=== PATIENT | female | born 1975 | race African-American/Black ===

== ENCOUNTER 2016-10-30 06:04 | Inpatient (IN) | payer OTHER ==
--- NOTE | 2016-10-29 09:45 | HP ---
Satellite PMH - Chief Complaint Chief Complaint: left hip pain Satellite Physical Exam - Physical Examination General Appearance: Well Nourished, Well Developed, Alert & Oriented x3 ENT: Clear Lung: Normal air movement Heart: Regular rate & rhythm Extremities: Other (left hip- + ttp, decr rom, nvi xrays show severe left hip djd) Neurological: Intact, Alert, Oriented Satellite Impression/Plan - Impression/Plan Impression: left hip djd Operative Procedure: left amy thr Date to be Performed: 10/30/16
[2016-10-30] MEDS ORDERED: CEFAZOLIN 1 GM/D5W 50 ML IVPB ONE (06:13)
[2016-10-30] MEDS ORDERED: TRANEXAMIC ACID 1000 MG/10 ML VIAL IVPUSH ONE (06:13)
[2016-10-30] MEDS: GABAPENTIN 300 MG CAPSULE (FP) PO ONE ×2 (06:30→19:26)
[2016-10-30] MEDS: oxyCODONE HCL 10 MG SUSTAINED ACTING TABLET PO ONE ×2 (06:30→19:26)
[2016-10-30] MEDS: CELECOXIB 200 MG CAPSULE PO ONE ×2 (06:30→19:26)
[2016-10-30 06:50] VITALS: BMI 26.9
[2016-10-30] MEDS ORDERED: DEXAMETHASONE SOD PHOSPHATE/PF 10 MG/ML SDV ONE (06:50)
[2016-10-30] MEDS ORDERED: ROPIVACAINE HCL 0.5% 30ML VIAL ONE (06:51)
[2016-10-30] MEDS ORDERED: MIDAZOLAM HCL 2 MG/2 ML SINGLE DOSE VIAL ONE ×2 (06:51→08:41)
[2016-10-30] MEDS ORDERED: VANCOMYCIN 1,000 MG VIAL (RESTRICTED TO ID ONLY) ONE (07:26)
[2016-10-30] MEDS ORDERED: ceFAZolin SODIUM 1 GM VIAL ONE ×2 (07:26→07:30)
[2016-10-30] MEDS ORDERED: SUCCINYLCHOLINE CHLORIDE 200 MG/10 ML VIAL ONE (07:38)
[2016-10-30] MEDS ORDERED: PROPOFOL 20 ML ONE (07:39)
[2016-10-30] MEDS ORDERED: ONDANSETRON 4 MG/2 ML VIAL IVPB PRN (10:01)
[2016-10-30] MEDS ORDERED: MAG HYDROX/AL HYDROX/SIMETH 30 ML UNIT-DOSE CUP PO PRN (10:01)
[2016-10-30] MEDS ORDERED: MAGNESIUM HYDROX 2400MG/30ML ORAL SUSPENSION 30 ML CUP PO PRN (10:01)
--- NOTE | 2016-10-30 10:06 | OP ---
Operative Note - Note: Operative Date: 10/30/16 (maximiliano) Pre-Operative Diagnosis: left hip djd Operation: left amy thr Post-Operative Diagnosis: Same as Pre-op Surgeon: Ned Abernathy Bleach Boiler Puller: Juan M Shabazz) Anesthesiologist/CARTON FORMING MACHINE TENDER: James Oh Anesthesia: Spinal, Local Specimens Removed: femoral head Estimated Blood Loss (mls): 200 Operative Report Dictated: Yes
[2016-10-30] MEDS ORDERED: LACTATED RINGERS SOLUTION 1,000 ML IV SCH (10:15)
[2016-10-30] MEDS ORDERED: ACETAMINOPHEN 325 MG TABLET (FP) ONE (10:59)
[2016-10-30] MEDS: ACETAMINOPHEN 325 MG TABLET (FP) PO SCH ×3 (11:00→23:45)
[2016-10-30] MEDS ORDERED: oxyCODONE HCL 5 MG TABLET ONE (11:03)
[2016-10-30] MEDS: oxyCODONE HCL 5 MG TABLET PO PRN ×3 (11:05→21:57)
[2016-10-30 15:17] LABS: HIV 1 & 2 AB NEGATIVE; HIV 1 AGp24 NEGATIVE
[2016-10-30] MEDS: CEFAZOLIN 1 GM/D5W 50 ML IVPB SCH ×2 (17:53→19:27)
[2016-10-30] MEDS: GABAPENTIN 300 MG CAPSULE (FP) PO SCH (21:58)
[2016-10-30] MEDS: oxyCODONE HCL 10 MG SUSTAINED ACTING TABLET PO SCH (21:58)
[2016-10-30] MEDS: SENNOSIDES/DOCUSATE COMBO (SENNA PLUS) TABLET (UD) PO SCH (21:59)
[2016-10-31] MEDS: CEFAZOLIN 1 GM/D5W 50 ML IVPB SCH (02:00)
[2016-10-31] MEDS: oxyCODONE HCL 5 MG TABLET PO PRN ×4 (02:40→17:24)
[2016-10-31] MEDS: ACETAMINOPHEN 325 MG TABLET (FP) PO SCH ×3 (06:51→17:21)
--- NOTE | 2016-10-31 08:11 | PN ---
Progress Note (short form) - Note Progress Note: Ortho Pt seen and examined s/p left amy thr pod #1 Selected Entries 10/31/16 05:36 Temperature 98.1 F Pulse Rate 68 Respiratory 19 Rate Blood Pressure 135/70 dressing c/d/i, calf soft, nt nvi a/p PT dvt ppx pain control d/c home tomorrow if stable
[2016-10-31] MEDS: GABAPENTIN 300 MG CAPSULE (FP) PO SCH ×2 (09:01→21:43)
[2016-10-31] MEDS: oxyCODONE HCL 10 MG SUSTAINED ACTING TABLET PO SCH ×2 (09:01→21:43)
[2016-10-31] MEDS: SENNOSIDES/DOCUSATE COMBO (SENNA PLUS) TABLET (UD) PO SCH ×2 (09:01→21:43)
[2016-10-31] MEDS: ASPIRIN 325 MG TABLET PO SCH (09:02)
[2016-10-31] MEDS: PANTOPRAZOLE 40 MG TABLET (FP) PO SCH (09:05)
[2016-10-31] MEDS: MULTIVITAMINS (DAILY MVI) TABLET (FP) PO SCH (09:06)
[2016-10-31 09:08] LABS: MCH 30.7 pg (25.7-33.7); PLATELET COUNT 276 K/MM3 (134-434); RDW 12.8 % (11.6-15.6); WHITE BLOOD COUNT 10.4 K/mm3 (4.0-10.0)
[2016-10-31 09:11] LABS: CALCIUM 8.4 mg/dl (8.4-10.2); CREATININE 0.7 mg/dl (0.6-1.3)
--- NOTE | 2016-10-31 12:39 | SPEC ---
DATE OF OPERATION: 10/30/2016 PREOPERATIVE DIAGNOSIS: Degenerative Joint Disease, Left Hip POSTOPERATIVE DIAGNOSIS: Degenerative Joint disease, Left Hip PROCEDURE: Left Total Hip Replacement with Robotic Arm Navigation Assistance (MAKOplasty). SURGEON: Ned Abernathy MD MANAGER QUANTITATIVE: Dr. Juan M Shabazz and LIZETH Berger. ANESTHESIA: Regional and Spinal. ANESTHESIOLOGIST: CLOSURE: [place] Total Hip System with a Press-Fit 50 Titanium acetabulum, No. 2 stem with a ceramic 32-mm head, No. 1 Vicryl for fascia, 0 and 2-0 subcutaneous, 3-0 Monocryl subcuticular and skin glue for skin, 4-0 undyed Vicryl for pin sites. ESTIMATED BLOOD LOSS: Less Than 100 mL. COMPLICATIONS: None. CONDITION: To recovery room in stable condition. DESCRIPTION OF OPERATIVE PROCEDURE: The patient was taken to the operating room. Spinal anesthesia as well as sciatic block was administered by the anesthesiologist. The IV Kefzol and TXA were administered prophylactically prior to the case. The patient was placed in the lateral decubitus position with all prominences well-padded. An EKG pad was secured to the inferior pole of the patella for limb length calculations intraoperatively. The left hip area was prepped and draped in the usual sterile fashion. A 12.0-15.0 cm curved longitudinal incision over the posterolateral aspect of the greater trochanter was made. Hemostasis was achieved with Bovie cautery. Sharp dissection was carried down to the level of the fascia. The fascia was opened the entire length of the incision, spreading the gluteus alfredo fibers in the direction of their origin. A Charnley retractor was placed in this layer, and care was taken to be far away from the sciatic nerve. The short external rotators were detached off the insertion of the greater trochanter and peeled off the capsule. A posterior capsulectomy was then performed. A checkpoint was malleted into the greater trochanter. Three small stab incisions were done on the iliac crest. Through these stab incisions, threaded guide pins were drilled into the iliac crest. These pins were fastened to the Navigation array. The check point on the greater trochanter, and the EKG pad on the inferior pole of the patella were used to measure preoperative limb length and offset. The hip was then dislocated. The hip was osteotomized at the appropriate level as directed by the preoperative template. Anterior and posterior retractors were placed around the acetabulum. Circumferential labrum was excised. A checkpoint was malleted into the acetabulum superiorly. The acetabulum was then registered with the Navigation device with multiple sites within the acetabulum and around the rim of the acetabulum. I t was then confirmed popping the blue bubbles, confirming ideal position and confirmation of adequate registration with the Navigation device. Using a 48 reamer, which was decided preoperatively on the preoperative template, the robotic arm was brought into the field and was used to ream the acetabulum down to the appropriate depth with the appropriate orientation and inversion applied. After reaming, a good hemispherical bleeding surface was encountered in the acetabulum. A SKYLER shell of the appropriate size was then malleted into place achieving excellent fit. Confirmation of the appropriate orientation and inversion was confirmed using the probe, and assuring that the acetabular cup was placed in the ideal position as templated preoperatively. A real liner was then clipped into place with a 10 degree lip in the posterior-superior quadrant. Anterior and posterior osteophytes were removed using osteotome. Next, our attention was directed to the femur. The proximal femur was opened with a box chisel, rat-tail, anchovy and serial reamers. This was done until the appropriate reamer achieved good fit and fill of the proximal femur. A trial reduction with the appropriate neck and head, as again measured from our preoperative template, was performed. Limb lengths were confirmed both visually and using the Navigation device, again measuring the inferior pole of the patella and the checkpoint of the greater trochanter. This confirmed ideal position of the femoral component, lengths and offset. The trial components were removed. The real component was malleted into place. The head was cold-welded to the Charnley and the hip was reduced. Again, the hip was found to have equal limb lengths as described previously. The hip was also taken through a range of motion and found to be stable in external rotation and extension, was stable in marked flexion, stable in adduction and internal rotation, and had a positive hang test and negative telescoping. The hip was irrigated with copious amounts of irrigation. Hemostasis was achieved. Vancomycin powder was sprinkled into the joint. A second dose of TXA was administered. The fascia was closed with No. 1 Vicryl interrupted suture, 0 and 2-0 for subcutaneous, and 3-0 Monocryl subcuticular for skin with skin glue. This was followed by an Aquacel dressing. The patient was flipped into the supine position. Bilateral SCDs and an abduction pillow were applied. X-rays showed good position of the components. The patient was awakened from anesthesia and transferred to the recovery room in stable condition. COMPLICATIONS: None. ESTIMATED BLOOD LOSS: Less than 100 mL. Marcela [id number]
[2016-11-01] MEDS: ACETAMINOPHEN 325 MG TABLET (FP) PO SCH ×3 (05:16→11:54)
[2016-11-01] MEDS: oxyCODONE HCL 5 MG TABLET PO PRN ×2 (05:17→11:55)
[2016-11-01 06:31] VITALS: BP 109/62; PULSE 99; TEMP 100.1
--- NOTE | 2016-11-01 07:49 | PN ---
Progress Note (short form) - Note Progress Note: Ortho Pt seen and examined s/p left amy thr pod #2 Selected Entries 11/01/16 06:00 Temperature 100.1 F H Pulse Rate 99 H Respiratory 19 Rate Blood Pressure 109/62 Laboratory Tests 10/31/16 08:30 WBC 10.4 H Hgb 10.0 L Hct 30.2 L Plt Count 276 dressing c/d/i, calf soft, nt nvi a/p PT dvt ppx pain control d/c home today f/u in 1 week
--- NOTE | 2016-11-01 07:50 | DS ---
Physical Examination Vital Signs: Vital Signs Temperature 100.1 F H 11/01/16 06:00 Pulse Rate 99 H 11/01/16 06:00 Respiratory Rate 19 11/01/16 06:00 Blood Pressure 109/62 11/01/16 06:00 O2 Sat by Pulse Oximetry (%) 94 L 11/01/16 07:39 Labs: CBC, BMP 10/31/16 08:30 10/31/16 08:30 Discharge Summary Reason For Visit: OSTEOARTHRITIS Procedures: Principal: s/p left amy thr Hospital Course: admitted for elective left amy thr, uneventful post-op, stable for d/c Condition: Good - Instructions Diet, Activity, Other Instructions: Post-op Instructions-Total Hip Replacement Call the office for a follow-up appointment in 1 week - [phone] Aspirin 325mg daily for 6 weeks. Pain medication was sent into your pharmacy. Apply Graduated Compression Stockings (TEDs) to both lower extremities- remove daily for hygiene ONLY Apply Sequential Compression Device (SCDs) to both Lower extremities remove for PT and hygiene ONLY Apply cold packs to affected area for 15 minutes every 2 hours. Physical Therapist will come to your home for the first 5 days. You will be set up with outpatient PT at your first post-operative visit. Patient may ambulate as tolerated-encourage self care (at least every 2-3 hours while awake) with walker or cane Maintain Aquacel (waterproof) dressing to operative wound (will be removed by surgeon at first office visit) Shower with Aquacel dressing in place-if Aquacel integrity compromised, remove and apply dry sterile dressing and notify Orthopedist. DO NOT SHOWER unless Orthopedists approves without Aquacel dressing CONTACT THE OFFICE FOR ANY CHANGE IN YOUR CONDITION (for example-fever greater than 102 degrees,excessive bleeding from operative site, purulent drainage, severe swelling or pain) GO TO THE EMERGENCY ROOM IF THERE IS A MEDICAL EMERGENCY Hip Precautions: * Keep a rolled towel under affected heel while in bed or chair (to keep knee in extension) * Dependent upon approach: * Posterior - do not cross legs; do not sit on low chairs or toilets. * If you have any questions, please do not hesitate to call the office - . Referrals: uJan M Shabazz MD [Staff Physician] - Disposition: VNS/HOME HEALTH CARE - Home Medications Comprehensive Discharge Medication List: Ambulatory Orders Aspirin [ASA -] 325 mg PO DAILY@0800 tablet 10/30/16 Oxycodone HCl/Acetaminophen [Percocet 5-325 mg Tablet -] 1 - 2 tab PO Q6H #50 tab MDD 8 10/30/16
[2016-11-01] MEDS: ASPIRIN 325 MG TABLET PO SCH (08:13)
[2016-11-01] MEDS: GABAPENTIN 300 MG CAPSULE (FP) PO SCH (09:17)
[2016-11-01] MEDS: oxyCODONE HCL 10 MG SUSTAINED ACTING TABLET PO SCH (09:17)
[2016-11-01] MEDS: MULTIVITAMINS (DAILY MVI) TABLET (FP) PO SCH (09:18)
[2016-11-01] MEDS: PANTOPRAZOLE 40 MG TABLET (FP) PO SCH (09:18)
[2016-11-01] MEDS: SENNOSIDES/DOCUSATE COMBO (SENNA PLUS) TABLET (UD) PO SCH (09:18)
[2016-11-01 09:48] LABS: MCH 30.7 pg (25.7-33.7); MCHC 33.3 g/dl (32.0-36.0); MEAN CELL VOLUME 92.1 fl (80-96); MEAN PLT VOLUME 8.8 fl (7.5-11.1); PLATELET COUNT 298 K/MM3 (134-434); RDW 12.6 % (11.6-15.6)
--- NOTE | 2016-11-01 13:36 | PATH ---
Surgical Pathology Report Patient Name: CHACHA REID Med. Rec. #: [id number] /Age/Gender: 1975 (Age: 41) / F Account: [id number] Location: [facility] Taken: 10/30/2016 Received: 10/30/2016 Reported: 11/01/2016 Physicians: Juan M Shabazz M.D. Specimen(s) Received LEFT FEMORAL HEAD Clinical History Left hip osteoarthritis Final Diagnosis FEMORAL HEAD, LEFT, TOTAL HIP REPLACEMENT (MAKOPLASTY):DEGENERATIVE JOINT DISEASE. Electronically Signed Sage Evans M.D. Gross Description Received in formalin, labeled "left femoral head" is a 4.6 x 4.6 x 4.0 cm femoral head with no femoral neck attached. The margin of resection is smooth. There is a 3 cm in greatest dimension area of eburnation present. The remaining articular surface is kaiser-yellow and diffusely granular. The underlying trabecular bone is kaiser-yellow and heterogeneous. A outside dealer sales representative section is submitted in one cassette, following decalcification. 10/31/201610/31/2016
== END 2016-11-01 14:24 | disposition home health service (06) | DRG 470 ==
LOC: FM/S 06:04
PROVIDERS: ADMIT Orthopaedic Surgery; ATTEND Orthopaedic Surgery
PROC: 8E0W0CZ Robotic Assisted Procedure of Trunk Region, Open Approach (ICD-10-PCS; 2016-10-30)
PROC: 0SRB03A Replacement of Left Hip Joint with Ceramic Synthetic Substitute, Uncemented, Open Approach (ICD-10-PCS; principal; 2016-10-30 08:35)
DX: M16.12 Unilateral primary osteoarthritis, left hip (principal)
CPT/HCPCS: 36415; 73502-TC-LT; 80048; 84703; 85027; 87389; 88304-TC; 88311-TC; 94010; 94760; 97116-GP